=== PATIENT | female | born 1935 | race Caucasian/White ===

== ENCOUNTER 2018-01-26 16:08 | Inpatient (IN) | payer MEDICARE ==
[~2018-01-26] VITALS: Ht 153.7 cm; Wt 71.2 kg
[~2018-01-26 16:08] MED LIST: AMITRIPTYLINE H50 MG PO; AMLODIPINE BESYL5 MG PO; ASPIR-LOW81 MG PO; CAPTOPRIL12.5 MG PO; LEVOTHYROXINE88 MCG PO; LOSARTAN POTAS100 MG PO; MECLIZINE HCL12.5 MG PO; METFORMIN HCL500 MG PO; NORCO 7.5-3251 EACH PO; OXYBUTYNIN CHLOR5 MG PO; PRAVASTATIN SOD20 MG PO; SERTRALINE HCL25 MG PO; SYNTHROID100 MCG PO; ULTRAM50 MG PO; WARFARIN PO; ZOLOFT50 MG PO; tylenol PO
[2018-01-26] MEDS ORDERED: SODIUM CHLORIDE 0.9% 250ML 250 ML IV ONE (16:30)
[2018-01-26] MEDS ORDERED: SODIUM CHLORIDE 0.9% 1000ML 1,000 ML IV STA (16:30)
[2018-01-26 17:14] LABS: BASOPHILS # (AUTO) 0.1 (0.0-0.1); BASOPHILS % 0.4 % (0.0-1.0); EOSINOPHILS # (AUTO) 0.2 (0.0-0.4); EOSINOPHILS % 1.3 % (0.0-6.0); HEMATOCRIT 38.5 % (34.2-44.1); HEMOGLOBIN 12.6 g/dL (12.0-16.0); LYMPHOCYTES # (AUTO) 1.5 (1.0-3.2); LYMPHOCYTES % 12.5 % (18.0-39.1); MEAN CORPUSCULAR HEMOGLOBIN 30.3 pg (28-32); MEAN CORPUSCULAR HGB CONC 32.7 g/dL (31-35); MEAN CORPUSCULAR VOLUME 92.5 fL (81-99); MONOCYTES # (AUTO) 0.8 (0.2-0.8); MONOCYTES % 6.9 % (4.4-11.3); NEUTROPHILS # (AUTO) 9.2 (2.1-6.9); NEUTROPHILS % 78.5 % (38.7-80.0); PLATELET COUNT 176 x10e3/uL (140-360); RED BLOOD COUNT 4.16 x10e6/uL (3.6-5.1); RED CELL DISTRIBUTION WIDTH 14.6 % (11.7-14.4)
[2018-01-26 17:19] LABS: INR 2.05; PROTHROMBIN TIME 24.7 seconds (11.9-14.5)
[2018-01-26 17:21] LABS: PARTIAL THROMBOPLASTIN TIME 64.8 seconds (23.8-35.5)
[2018-01-26 17:28] LABS: ALBUMIN 3.5 g/dL (3.5-5.0); ANION GAP 18.3 mmol/L (8-16); CALCIUM 9.7 mg/dL (8.4-10.2); CREATININE, SERUM 1.38 mg/dL (0.57-1.11); POTASSIUM 4.3 mmol/L (3.5-5.1)
[2018-01-26] MEDS ORDERED: HYDROCODONE/APAP 5MG-325MG TAB PO ONE (17:30)
[2018-01-26 17:55] LABS: BILIRUBIN,URINE 1+ (NEGATIVE); KETONES,URINE TRACE (NEGATIVE); LEUKOCYTE ESTERASE ,URINE NEGATIVE (NEGATIVE); NITRITE,URINE NEGATIVE (NEGATIVE); PROTEIN,URINE DIPSTICK TRACE (NEGATIVE); URINE UROBILINOGEN 0.2 mg/dL (0.2 - 1)
[2018-01-26 18:06] LABS: AMORPHOUS SEDIMENT,URINE MODERATE (FEW); CLARITY,URINE HAZY (CLEAR); COLOR,URINE YELLOW (YELLOW); EPITHELIAL CELLS,URINE FEW /LPF; RBC,URINE 0-5 /HPF (0-5); WBC,URINE (MAN) 0-5 /HPF (0-5)
--- NOTE | 2018-01-26 18:54 | Diagnostic Imaging Report ---
History:Fall, syncope Comparison studies:None Technique: Axial images were obtained from the skull base to the vertex. Coronal and sagittal images reconstructed from the axial data. Intravenous contrast: None Dose modulation, iterative reconstruction, and/or weight based adjustment of the mA/kV was utilized to reduce the radiation dose to as low as reasonably achievable. Findings: Scalp/skull: No abnormalities. Extra-axial spaces: No masses. No fluid collections. Brain sulci: Mildly prominent. Ventricles: Mild compensatory dilatation. No hydrocephalus. Parenchyma: Few small hypodensities in the supratentorial white matter are small vessel ischemic changes. Small chronic head and left subinsular region.. No masses, hemorrhage, acute or chronic cortical vascular insults. Sellar/suprasellar region: No abnormalities. Craniocervical junction: Patent foramen magnum. No Chiari one malformation. Incidental findings: Atherosclerotic calcifications in the carotid siphons . Impression: No acute abnormalities. Chronic findings: 1. Mild generalized volume loss. 2. Mild supratentorial white matter small vessel ischemic changes. Signed by: DR Fredy Hudson M.D. on 01/26/2018 6:50 PM
--- NOTE | 2018-01-26 19:23 | Diagnostic Imaging Report ---
History: Fall, hit head Comparison studies: None Technique: Axial images were obtained through the cervical region. Coronal and sagittal images reconstructed from the axial data. Intravenous contrast: None Findings: Atlantoaxial articulation: Degenerative changes without acute abnormality Alignment: Normal lordosis No scoliosis. Cervicomedullary junction: No abnormalities. Patent foramen magnum. Soft tissues: No gross abnormalities. Vertebrae: No fractures, neoplasm or infection. Degenerative changes: C2-C3: Patent spinal canal and foramina . C3-4: Uncinate facet results in mild bilateral foraminal narrowing with patent canal . C4-5: Uncinate process and facet hypertrophy results in moderate right and mild left foraminal narrowing and patent canal . C5-6: Disc degeneration with decreased intervertebral space. Uncinate process and facet results in moderate bilateral narrowing and patent canal . C6-7: Is degeneration with obliterated intervertebral space. Posterior disc osteophyte complex, bilateral uncinate hypertrophy and facet hypertrophy results in moderate bilateral foraminal narrowing . C7-T1: Patent spinal canal and foramina . IMPRESSION: 1. No acute cervical abnormality. 2. Cannot rule out ligamentous or spinal cord injury. Signed by: DR Fredy Hudson M.D. on 01/26/2018 7:20 PM
[2018-01-26] MEDS ORDERED: ONDANSETRON HCL INJ 2 MG/ML VIAL IV ONE (19:30)
[2018-01-26] MEDS ORDERED: MORPHINE SULFATE 2 MG/ML SYR IV ONE (19:30)
[2018-01-26] MEDS ORDERED: SODIUM CHLORIDE FLUSH 10 ML SYR INJ PRN (19:45)
[2018-01-26 20:30] VITALS: BP 137/51
--- NOTE | 2018-01-26 20:52 | Diagnostic Imaging Report ---
EXAM: CT ABDOMEN/PELVIS WO DATE: 01/26/2018 7:37 PM INDICATION: \S\BLOODY DIARRHEA \S\[id number] \S\2001 \S\Y COMPARISON: None TECHNIQUE: The abdomen and pelvis were scanned using a multidetector helical scanner. Coronal and sagittal reformations were obtained. CT low dose techniques were utilized, as applicable. IV Contrast: 0 ml Isovue 300/370 FINDINGS: Lack of IV contrast decreases sensitivity in evaluating abdominal and pelvic organs. LOWER THORAX: Minimal bibasilar scarring/atelectasis. LIVER/BILIARY: Unremarkable noncontrast appearance. GALLBLADDER: Unremarkable SPLEEN: Unremarkable PANCREAS: Unremarkable noncontrast appearance ADRENALS: No nodules KIDNEYS: No stones. No hydronephrosis. GI TRACT: Diffuse wall thickening and inflammatory changes about the splenic flexure and descending colon. Scattered diverticula. Normal appendix. VESSELS: Moderate atherosclerotic calcifications. PERITONEUM/RETROPERITONEUM: No free air or fluid LYMPH NODES: No lymphadenopathy REPRODUCTIVE ORGANS/BLADDER: Chase noted within the bladder. Otherwise unremarkable noncontrast appearance. SOFT TISSUES: Tiny fat-containing umbilical hernia. BONES: Partially imaged right hip arthroplasty. Multilevel degenerative changes with grade 1 anterolisthesis of L4 over L5. IMPRESSION: Diffuse thickening and inflammatory change from the splenic flexure through the descending colon. This raises suspicion of ischemic colitis given bloody diarrhea and distribution although the differential includes infectious colitis. Signed by: Dr Kristan Glover MD on 01/26/2018 8:49 PM
[2018-01-26] MEDS: MORPHINE SULFATE 2 MG/ML SYR IV PRN (23:55)
[2018-01-27] VITALS (13 sets, daily range): BP systolic 107–147; BP diastolic 51–69
--- NOTE | 2018-01-27 00:30 | Consultation ---
DATE OF CONSULTATION: GI CONSULT NOTE REFERRING PHYSICIAN: Raheem Stovall MD REASON FOR CONSULT: Multiple episodes of painless rectal bleeding. HISTORY OF PRESENT ILLNESS: An 82-year-old very pleasant white female who is a patient of Dr. Casarez. She presented in the emergency room with recurrent episode of painless rectal bleeding. At one point of time, she felt as if she is going to pass out. She had some associated nausea. She is also on warfarin for atrial fibrillation or some kind of a blood clot in carotids. She is not sure why is she on warfarin. In the emergency room, she was noted to be hemodynamically stable. Hemoglobin was noted 12.6. CT of the abdomen showed diffuse thickening in the splenic flexure and descending colon, highly suspicious for ischemic colitis. Patient has not had any episode of rectal bleeding while in the emergency room. No associated fever or chills. Patient recalled that she might have had a colonoscopy within last 5 years. REVIEW OF SYSTEMS: Twelve-point system reviewed, symptomatology is limited to GI system. PAST MEDICAL HISTORY: Hypothyroidism, hypertension, diabetes, hyperlipidemia, anxiety and depression. PAST SURGICAL HISTORY: No abdominal surgeries. 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 SOCIAL HISTORY: No smoking, alcohol, or any illicit drug use. PHYSICAL EXAMINATION VITAL SIGNS: Temperature 96, pulse 20, respirations 154/62, and oxygen saturation 97% on room air. GENERAL: Not in any acute distress. Oral mucosa is moist. Anicteric sclerae. CVS: S1, S2, irregularly irregular. LUNGS: Bilateral grossly clear. ABDOMEN: Soft, protuberant belly, nondistended. Mild lower quadrant tenderness on deep palpation without rebound, rigidity, or guarding. Positive bowel sounds. EXTREMITIES: Warm. No leg edema. LABS: WBC 11.69, hemoglobin 12.6, hematocrit 38.5, MCV 92.5, and platelet count 176,000. Sodium 137, potassium 4.3, chloride 105, bicarb 18, BUN 31, and creatinine 1.38. Liver enzymes normal. PT 24.7, INR 2.05. Urinalysis negative. CT of the abdomen and pelvis without IV contrast showed diffuse thickening and inflammatory changes from splenic flexure through the descending colon. This raises suspicion of ischemic colitis given bloody diarrhea and distribution, although the differential includes infectious colitis. IMPRESSION: Ischemic colitis given no significant drop in hemoglobin. PLAN: Supportive care. IV antibiotics. Clear liquid diet, advance the diet as patient clinically improves. I do not feel the need for any colonoscopy at this time. Will continue the warfarin if it is needed. I thank Dr. Stovall for allowing me to participate in the care of this patient. Job#: [id number] CF
[2018-01-27] MEDS: HYDROCODONE/APAP 5MG-325MG TAB PO PRN ×2 (02:55→14:02)
[2018-01-27 05:03] LABS: BASOPHILS # (AUTO) 0.1 (0.0-0.1); BASOPHILS % 0.6 % (0.0-1.0); EOSINOPHILS # (AUTO) 0.2 (0.0-0.4); EOSINOPHILS % 1.4 % (0.0-6.0); HEMOGLOBIN 10.8 g/dL (12.0-16.0); LYMPHOCYTES # (AUTO) 1.4 (1.0-3.2); LYMPHOCYTES % 12.9 % (18.0-39.1); MEAN CORPUSCULAR HEMOGLOBIN 30.1 pg (28-32); MEAN CORPUSCULAR HGB CONC 31.8 g/dL (31-35); MEAN CORPUSCULAR VOLUME 94.7 fL (81-99); MONOCYTES # (AUTO) 1.1 (0.2-0.8); MONOCYTES % 10.6 % (4.4-11.3); NEUTROPHILS % 74.1 % (38.7-80.0); PLATELET COUNT 133 x10e3/uL (140-360); RED BLOOD COUNT 3.59 x10e6/uL (3.6-5.1); RED CELL DISTRIBUTION WIDTH 14.6 % (11.7-14.4)
[2018-01-27 05:18] LABS: CREATININE, SERUM 0.95 mg/dL (0.57-1.11)
[2018-01-27] MEDS: PANTOPRAZOLE 40 MG 10ML VIAL IV SCH (08:17)
[2018-01-27] MEDS: ACETAMINOPHEN 325 MG TAB PO PRN ×2 (08:20→16:06)
[2018-01-27] MEDS: MORPHINE SULFATE 2 MG/ML SYR IV PRN ×3 (09:44→20:30)
[2018-01-27] MEDS: MECLIZINE HCL 12.5 MG TAB PO SCH (10:00)
[2018-01-27 10:14] LABS: BASOPHILS % 0.4 % (0.0-1.0); EOSINOPHILS # (AUTO) 0.1 (0.0-0.4); EOSINOPHILS % 0.9 % (0.0-6.0); HEMATOCRIT 32.8 % (34.2-44.1); HEMOGLOBIN 10.7 g/dL (12.0-16.0); LYMPHOCYTES # (AUTO) 0.9 (1.0-3.2); LYMPHOCYTES % 9.7 % (18.0-39.1); MEAN CORPUSCULAR HEMOGLOBIN 30.5 pg (28-32); MEAN CORPUSCULAR HGB CONC 32.6 g/dL (31-35); MEAN CORPUSCULAR VOLUME 93.4 fL (81-99); MONOCYTES # (AUTO) 0.8 (0.2-0.8); MONOCYTES % 8.6 % (4.4-11.3); NEUTROPHILS # (AUTO) 7.7 (2.1-6.9); NEUTROPHILS % 79.9 % (38.7-80.0); PLATELET COUNT 149 x10e3/uL (140-360); RED BLOOD COUNT 3.51 x10e6/uL (3.6-5.1); RED CELL DISTRIBUTION WIDTH 14.6 % (11.7-14.4)
[2018-01-27] MEDS: OXYBUTYNIN CHLORIDE 5 MG TAB PO SCH ×2 (10:18→17:20)
[2018-01-27] MEDS: SODIUM CHLORIDE 0.9% 1000ML 1,000 ML IV SCH (10:18)
[2018-01-27] MEDS: LEVOTHYROXINE SODIUM 75 MCG TAB PO SCH (10:18)
[2018-01-27 10:27] LABS: INR 1.8; PROTHROMBIN TIME 22.3 seconds (11.9-14.5)
--- NOTE | 2018-01-27 10:29 | History and Physical ---
CHIEF COMPLAINT: Syncopal episode and bloody diarrhea. HPI: This is an 82-year-old female with a past medical history of hypertension, hypothyroidism, and underlying chronic dizziness, as well as urinary incontinence, who comes in to the ED after having a couple of episodes of syncope that occurred at home. Patient reports that she was getting up having the urge to use the bathroom. When she got up, she landed on the ground, but did not lose any consciousness. There is no reports of any chest pain, palpitation, lightheadedness, or dizziness prior to this occurring. Patient then got up and went to the restroom, and reports having a significant amount of bloody diarrhea. She completed her diarrhea and went back to the living room. Then she got up again to go use the restroom, and then fell over again. There is no reports of loss of consciousness on any episodes. There is no reports of any slurred speech, facial droop, any stroke-like symptoms, or any seizure like activity. No chest pain. No palpitations when this occurred. The patient still reports having significant amount of bloody diarrhea after several bouts, and came here to the ED for further evaluation. On eval, the patient looks significantly dehydrated likely secondary to the above diarrhea. Denies any chest pain, palpitation or any other complaints at this time. REVIEW OF SYSTEMS: Pertinent positive: She had bloody diarrhea and syncopal episode and abdominal pain. Pertinent negative: Denies any chest pain, palpitation, nausea, vomiting, diarrhea, dysuria, hematuria, frequency, urgency, lightheadedness, dizziness, shortness of breath, cough, congestion or any other complaints. The rest of the 14-point review of systems have been reviewed with the patient and are negative. ALLERGIES: NO KNOWN DRUG ALLERGIES. MEDICATIONS 1. Aspirin 81 mg daily. 2. She takes Winfield 7.5 mg 1 tab every 6 hours as needed for pain. 3. Metformin 500 mg b.i.d. 4. Tramadol. 5. Amitriptyline 50 mg daily. 6. Amlodipine 10 mg p.o. b.i.d. 7. Levothyroxine 150 mcg daily. 8. Losartan 100 mg b.i.d. 9. Meclizine 25 mg daily. 10. Oxybutynin 5 mg p.o. b.i.d. 11. Pravastatin 20 mg daily. 12. Sertraline 100 mg b.i.d. PAST MEDICAL HISTORY: Hypothyroidism, hypertension, chronic dizziness, chronic pain. SURGICAL HISTORY: Reports none. FAMILY HISTORY: Hypertension and diabetes. SOCIAL HISTORY: No drugs. No alcohol. Does not smoke. Good social support. PHYSICAL EXAMINATION VITAL SIGNS: Temperature is 101.2, pulse is 96, respiratory rate is 18, blood pressure 147/67, pulse ox 99% on 2 L nasal cannula. GENERAL: Not in acute distress. Alert and oriented times 3. Cooperative on examination. HEENT: Head is normocephalic and atraumatic. Eyes: Pupils equal, round and reactive to light bilaterally. Extraocular movements intact bilaterally. NECK: Supple. Good range of motion. Throat with no evidence of any erythema or exudates in the posterior pharynx. Has poor dentition. PULMONARY: Clear to auscultation bilaterally. No wheezing. No rales. No rhonchi. No crackles appreciated. CARDIOVASCULAR: Positive S1 and S2. No murmurs, rubs or gallops appreciated. ABDOMEN: Soft, nondistended and nontender to palpation. Bowel sounds present. The patient had tenderness to palpation in the left lower quadrant area. No rebound. No guarding. MUSCULOSKELETAL: Strength is 5/5 throughout. No evidence of any muscle deficit on examination. No weakness appreciated. NEUROLOGICAL: Cranial nerves II-XII are grossly intact. No evidence of any neurological deficits on exam. SKIN: Intact. Warm to touch. Good cap refill. PSYCHIATRIC: Normal affect and mood. EXTREMITIES: No edema. Good range of motion throughout. LAB FINDINGS: Show white count is 10.7, hemoglobin 10.8, hematocrit 34, and platelets of 133, 000. On admission, her hemoglobin was 12.6. Coagulation: PT 24.7, INR is 2.05 and PTT is 64.8. Chemistry: Sodium 137, potassium is 4, chloride 108, bicarb 18, anion gap of 15, BUN is 23, creatinine 0.95, glucose is 123. Calcium 9.7. LFTs were normal. Albumin 3.5. Urinalysis negative. MICROBIOLOGY: Urine culture pending. IMAGING STUDIES: CT of cervical spine was found to be negative for any acute abnormality. CT of brain was found to be negative. CT of abdomen and pelvis was consistent with diffuse thickening and inflammatory changes from the splenic flexure through the descending colon. This is concerning for ischemic colitis. ASSESSMENT AND PLAN 1. Abdominal pain concerning for underlying ischemic colitis versus infectious: Seems like the patient has more ischemic colitis with the bloody diarrhea. Will get gastroenterology, as well as general surgery consultation. She is on a clear liquid diet. Continue intravenous fluids and pain control. Also, get coags and a.m. labs. 2. Acute kidney injury secondary to dehydration: Creatinine is improving. Continue with intravenous fluids. 3. Syncope likely secondary to underlying dehydration: Will monitor very closely. Will get physical therapy and occupational therapy eval. Her computerized tomography of the brain was found to be negative, as well as computerized tomography of cervical spine. She will be on cardiac telemetry and monitor closely. We are going trend troponins as well. She will work with physical therapy as well. We are going to get a shoulder x-ray bilaterally, as well as a hip x-ray to rule out any type of fracture. 4. Chronic pain syndrome: She is currently on Winfield and pain control. 5. Hypertension, stable: Continue same home medications. 6. Fever likely secondary to get ischemic colitis versus infectious: We are going to get blood cultures, urine cultures and put her on intravenous Cipro and Flagyl in the event she has an infectious colitis. 7. Prophylaxis: We are going to put her on sequential compression devices for now. No anticoagulation due to bloody diarrhea. 8. Fluid, electrolytes and nutrients: Intravenous fluids and clear liquid diet. 9. Disposition: Inpatient. General surgery and gastroenterology will be consulted to further manage and care. Job#: [id number] GALLO
[2018-01-27 10:32] LABS: ANION GAP 13.8 mmol/L (8-16); CALCIUM 8.4 mg/dL (8.4-10.2); CREATININE, SERUM 0.99 mg/dL (0.57-1.11); POTASSIUM 3.8 mmol/L (3.5-5.1)
[2018-01-27] MEDS: METRONIDAZOLE 500MG/NS 100ML 100 ML IV SCH ×2 (11:30→18:05)
--- NOTE | 2018-01-27 13:23 | Diagnostic Imaging Report ---
Exam: Right and left hip 2 views each with AP pelvis History: Pain Comparison: None. Findings: No displaced fracture. Right total hip arthroplasty. Hardware intact. Minimal degenerative arthrosis of the left hip. Bone demineralization. Impression: No acute osseous abnormality Intact right hip total arthroplasty Signed by: Dr. Rom Glass M.D. on 01/27/2018 1:20 PM
--- NOTE | 2018-01-27 13:25 | Diagnostic Imaging Report ---
Exam: Right and left shoulder 2 views each History: Shoulder pain, fall Comparison: None. Findings: No fracture or malalignment. Severe glenohumeral degenerative arthrosis with [id number] appearance and hypertrophic osteophyte formation. No abnormal soft tissue calcification or soft tissue defect. Impression: No acute osseous abnormality Severe glenohumeral degenerative arthrosis with [id number] appearance and hypertrophic osteophyte formation Signed by: Dr. Rom Glass M.D. on 01/27/2018 1:21 PM
[2018-01-27] MEDS: CIPROFLOXACIN 400 MG/D5W 200ML 200 ML IV SCH ×2 (14:15→21:28)
[2018-01-27] MEDS ORDERED: SERTRALINE HCL 50 MG TAB PO SCH (17:00)
[2018-01-27 17:09] LABS: BASOPHILS % 0.4 % (0.0-1.0); EOSINOPHILS # (AUTO) 0.1 (0.0-0.4); EOSINOPHILS % 1.2 % (0.0-6.0); HEMATOCRIT 31.7 % (34.2-44.1); HEMOGLOBIN 10.2 g/dL (12.0-16.0); LYMPHOCYTES # (AUTO) 0.9 (1.0-3.2); LYMPHOCYTES % 9.6 % (18.0-39.1); MEAN CORPUSCULAR HEMOGLOBIN 30.4 pg (28-32); MEAN CORPUSCULAR HGB CONC 32.2 g/dL (31-35); MEAN CORPUSCULAR VOLUME 94.3 fL (81-99); MONOCYTES # (AUTO) 0.9 (0.2-0.8); MONOCYTES % 9.6 % (4.4-11.3); NEUTROPHILS # (AUTO) 7.1 (2.1-6.9); NEUTROPHILS % 78.6 % (38.7-80.0); PLATELET COUNT 138 x10e3/uL (140-360); RED BLOOD COUNT 3.36 x10e6/uL (3.6-5.1); RED CELL DISTRIBUTION WIDTH 14.6 % (11.7-14.4)
[2018-01-27] MEDS: AMLODIPINE BESYLATE 5 MG TAB PO SCH (17:20)
[2018-01-27] MEDS: LOSARTAN POTASSIUM 100 MG TAB PO SCH (17:20)
[2018-01-27] MEDS: SERTRALINE HCL 100 MG TAB PO SCH (17:20)
[2018-01-27] MEDS: PRAVASTATIN 20 MG TAB PO SCH (20:30)
--- NOTE | 2018-01-27 22:02 | Progress Note ---
DATE: January 27, 2018 SUBJECTIVE: Patient has not had any bowel movement since yesterday. Reports no abdominal pain. Complaining of generalized muscle ache. REVIEW OF SYSTEMS: GENERAL: No fever or chills. RESPIRATORY: No cough or expectoration. CVS: No chest pain, palpitation. MEDICATIONS: Reviewed as per JUN. She is on intravenous ciprofloxacin as well as metronidazole along with other medications. PHYSICAL EXAMINATION: VITAL SIGNS: Temperature 98.9, pulse 82, respirations 18 to 20, blood pressure 132/65, oxygen saturation 94% on 2 liters of nasal cannula. GENERAL: Not in any acute distress. HEENT: Oral mucosa is moist. ABDOMEN: Soft, nondistended, nontender. No palpable mass or hernia. Positive bowel sounds. LABS: WBC 9.08, hemoglobin 10.2, hematocrit 31.7, and platelet count 138,000. PT 22.3, INR 1.8. Sodium 135, potassium 3.8, chloride 106, bicarb 19, BUN 23, creatinine 0.99, glucose 189. IMPRESSION: Ischemic colitis, likely which has improved. No more rectal bleeding. Hemoglobin remains stable. PLAN: Advance to full liquid. Monitor next 12 hours for any GI bleeding. If no further bleeding and hemoglobin remains stable, then the warfarin can be restarted. Job#: [id number]
[2018-01-28] VITALS (10 sets, daily range): BP systolic 115–152; BP diastolic 59–81
[2018-01-28] MEDS: HYDROCODONE/APAP 5MG-325MG TAB PO PRN ×2 (00:28→19:12)
[2018-01-28 00:30] LABS: HEMATOCRIT 31.7 % (34.2-44.1); HEMOGLOBIN 10.3 g/dL (12.0-16.0)
--- NOTE | 2018-01-28 00:46 | Consultation ---
DATE OF CONSULTATION: January 27, 2018 CHIEF COMPLAINT: Diarrhea and hematochezia. HISTORY OF PRESENT ILLNESS: This patient is an 82-year-old female admitted after 2 episodes of fainting and falling at home, complaining of pain in the abdomen. The patient states she had some diarrhea and cramping abdominal pain prior to the fainting episode. Upon admission, she also had blood per rectum. PAST MEDICAL HISTORY: Significant for hypertension, diabetes, hyperlipidemia, and hypothyroidism. SURGICAL HISTORY: Unremarkable. ALLERGIES: SHE HAS NO DRUG ALLERGIES. SOCIAL HABITS: The patient denies smoking or alcohol abuse. REVIEW OF SYSTEMS: No current chest pain or shortness of breath. PHYSICAL EXAMINATION VITAL SIGNS: Stable. T-max is 101. GENERAL: Patient is awake, responsive, in no apparent distress. HEENT: Sclerae anicteric. NECK: Supple. LUNGS: Clear. HEART: Regular rate and rhythm. ABDOMEN: Mildly distended with some guarding in the mid abdomen without rebound or tenderness. EXTREMITIES: Without cyanosis or edema. LABS: White cell count is 9, hemoglobin of 10, and platelet count is 138,000. Creatinine is 0.9. CT of the abdomen shows inflammation of the left colon suggestive of ischemic versus infectious colitis. X-ray of shoulder and hip shows no acute fracture. ASSESSMENT: Crampy abdominal pain with episode of hematochezia which has resolved and patient tolerating clear liquids. Computerized tomography scan suggests ischemic colitis. PLAN: The patient has been currently well hydrated. She tolerated liquid diet. We will advance diet as tolerated and manage patient conservatively. Job#: [id number]
[2018-01-28] MEDS: METRONIDAZOLE 500MG/NS 100ML 100 ML IV SCH ×3 (01:18→17:22)
[2018-01-28 04:35] LABS: HEMATOCRIT 33.1 % (34.2-44.1); HEMOGLOBIN 10.4 g/dL (12.0-16.0)
[2018-01-28] MEDS: LEVOTHYROXINE SODIUM 75 MCG TAB PO SCH (05:29)
[2018-01-28] MEDS ORDERED: LEVOTHYROXINE SODIUM 100 MCG TAB PO SCH (06:00)
[2018-01-28 06:39] LABS: BASOPHILS % 0.4 % (0.0-1.0); EOSINOPHILS # (AUTO) 0.1 (0.0-0.4); EOSINOPHILS % 1.1 % (0.0-6.0); LYMPHOCYTES # (AUTO) 1.2 (1.0-3.2); LYMPHOCYTES % 12.8 % (18.0-39.1); MEAN CORPUSCULAR HEMOGLOBIN 30.7 pg (28-32); MEAN CORPUSCULAR HGB CONC 32.3 g/dL (31-35); MONOCYTES # (AUTO) 0.8 (0.2-0.8); MONOCYTES % 9.2 % (4.4-11.3); NEUTROPHILS # (AUTO) 6.9 (2.1-6.9); NEUTROPHILS % 75.8 % (38.7-80.0); PLATELET COUNT 148 x10e3/uL (140-360); RED BLOOD COUNT 3.42 x10e6/uL (3.6-5.1); RED CELL DISTRIBUTION WIDTH 14.6 % (11.7-14.4)
[2018-01-28 06:46] LABS: ANION GAP 15.9 mmol/L (8-16); CALCIUM 9.5 mg/dL (8.4-10.2); CREATININE, SERUM 1.04 mg/dL (0.57-1.11); POTASSIUM 4.9 mmol/L (3.5-5.1)
[2018-01-28] MEDS: SODIUM CHLORIDE 0.9% 1000ML 1,000 ML IV SCH ×2 (07:10→16:55)
[2018-01-28] MEDS: PANTOPRAZOLE 40 MG 10ML VIAL IV SCH (08:55)
[2018-01-28] MEDS: SERTRALINE HCL 100 MG TAB PO SCH ×2 (08:55→17:00)
[2018-01-28] MEDS: AMLODIPINE BESYLATE 5 MG TAB PO SCH ×2 (08:55→17:00)
[2018-01-28] MEDS: MECLIZINE HCL 12.5 MG TAB PO SCH (08:55)
[2018-01-28] MEDS: AMITRIPTYLINE HCL 25 MG TAB PO SCH (08:55)
[2018-01-28] MEDS: OXYBUTYNIN CHLORIDE 5 MG TAB PO SCH ×2 (08:55→17:00)
[2018-01-28] MEDS: LOSARTAN POTASSIUM 100 MG TAB PO SCH ×2 (08:55→17:00)
[2018-01-28] MEDS ORDERED: NON-FORMULARY MEDICATION (Amitriptyline Hcl 50 MG) PO SCH (09:00)
[2018-01-28] MEDS: CIPROFLOXACIN 400 MG/D5W 200ML 200 ML IV SCH (09:15)
[2018-01-28] MEDS: ACETAMINOPHEN 325 MG TAB PO PRN ×3 (10:00→18:20)
[2018-01-28] MEDS: MEROPENEM 500 MG VIAL IV SCH ×3 (10:36→22:18)
--- NOTE | 2018-01-28 11:01 | Progress Note ---
DATE: January 28, 2018 SUBJECTIVE: Patient is doing very well today. She still has some shoulder pain. X-ray is consistent with osteoarthritis. I reviewed the note with general surgery and GI at this time. They just want conservative treatment. She does have a history of coagulopathy in which I have discussed this with the primary care physician last night, Dr. Casarez, in which she follows up with Dr. 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 That is the reason why she is currently on warfarin. OBJECTIVE VITALS: Temperature is 102.2, T-max was 102.2. She is not complaining of any complaints at this time. Her pulse is 96, respiratory rate 20, blood pressure 142/77, pulse ox 93%. She is on 3 L nasal cannula. GENERAL: Not in acute distress. Alert and oriented times 3. Cooperative on examination. HEENT: Head is normocephalic and atraumatic. Eyes: Pupils equal, round and reactive to light bilaterally. Extraocular movements intact bilaterally. NECK: Supple. Good range of motion. Throat with no evidence of any erythema or exudates in the posterior pharynx. Has poor dentition. PULMONARY: Clear to auscultation bilaterally. No wheezing. No rales. No rhonchi. No crackles appreciated. CARDIOVASCULAR: Positive S1 and S2. No murmurs, rubs or gallops appreciated. ABDOMEN: Soft, nondistended and nontender to palpation. Bowel sounds present. MUSCULOSKELETAL: Strength is 5/5 throughout. No evidence of any muscle deficit on examination. No weakness appreciated. NEUROLOGICAL: Cranial nerves II-XII are grossly intact. No evidence of any neurological deficits on exam. SKIN: Intact. Warm to touch. Good cap refill. PSYCHIATRIC: Normal affect and mood. EXTREMITIES: No edema. Good range of motion throughout. LAB FINDINGS: Show white count is 9, hemoglobin 10.4, hematocrit 33, and platelets of 148,000. Coagulation: PT 22.3, INR 1.8. Chemistry: Sodium 135, potassium 4.9, chloride 105, bicarb 19, anion gap is 15, BUN 22, creatinine 1.04, glucose 152. Calcium is 9.5. Urinalysis was negative. MICROBIOLOGY: Urine culture negative. Blood cultures were negative times 2. IMAGING STUDIES: Chest x-ray ordered today and is pending. Her hip x-ray was negative. Right shoulder x-ray was consistent with osteoarthritis with severe glenohumeral degenerative arthrosis, [id number] hypertrophic osteophyte formation. ASSESSMENT AND PLAN 1. Abdominal pain secondary to ischemic colitis: Per general surgery and gastroenterology's notes, they recommend conservative treatment. The patient has no more rectal bleeding on exam now. She is on a clear liquid diet. We are going to advance her diet to regular per new vehicle sales consultant's notes. Her INR is 1.8. Will continue to monitor that as well. 2. Acute kidney injury secondary to dehydration, resolved with intravenous fluid hydration: Continue with low-dose intravenous fluids. 3. Syncope: Likely secondary to dehydration and rectal bleeding. She refuses to work with physical therapy and occupational therapy. Her computerized tomography of brain was found to be negative. Computerized tomography of cervical spine negative as well. Her cardiac enzymes were negative times 3. Her x-ray of her hip is negative. Right shoulder x-ray shows osteoarthritis, but no evidence of any fracture. 4. Chronic pain syndrome: She is currently on pain control. Will continue to monitor. 5. Hypertension: Currently stable. Continue the same plan of care. 6. Fever: Unknown etiology. I am not sure if this is from ischemic colitis versus infectious. I will discontinue the Cipro and add intravenous Merrem. Her blood and urine cultures are negative. Chest x-ray has been taken, and infectious disease has been consulted. 7. History of coagulopathy: The patient is on warfarin due to some history of some coagulopathy in which she was following up with Dr. Newton, hematology. I discussed this with Dr. Casarez, her primary care physician. At this time, I will consult with Dr. Newton about possibly resuming her warfarin medication. Will await hematology recommendations. 8. Prophylaxis: Sequential compression devices. 9. Fluid, electrolytes, nutrients: Low-dose intravenous fluids. She is on clear liquids. Advance diet as tolerated. 10. Disposition: Inpatient. General surgery, gastroenterology and hematology consulted. 11. Discharge planning: Plan to discharge home in the next 1-2 days once the patient is tolerating diet well, and once I get hematology recommendations and there is no more evidence of any rectal bleeding. Job#: [id number] SD
--- NOTE | 2018-01-28 11:27 | Diagnostic Imaging Report ---
PROCEDURE: A single AP view of the chest. COMPARISON: Patients [facility], DX, SHOULDER COMPLETE BILATERAL, 01/27/2018, 12:23. Patients [facility], DX, CHEST 2 VIEWS, 12/07/2016, 12:21. INDICATIONS: SHORT OF BREATH FINDINGS: Lines/tubes: None. Lungs: Opacity which may be pleural-based involving the right lateral upper lobe region. Increase in the pulmonary vascularity. There is a right basilar opacity likely atelectasis. Pleura: There is no pleural effusion or pneumothorax. Heart and mediastinum: The heart and the mediastinum are unremarkable. Calcification within the aorta. Bones: Degenerative changes of both shoulders. IMPRESSION: 1. Right upper pulmonary opacity could represent pleural-based mass or hematoma. 2. CT scan of the chest with IV contrast is recommended. Brendan Brian D.O. Dictated by: Brendan Brian D.O. on 01/28/2018 at 11:36 Electronically approved by: Brendan Brian D.O. on 01/28/2018 at 11:36
[2018-01-28] MEDS ORDERED: MEROPENEM 500MG 500 MG in SODIUM CHLORIDE 0.9% 50ML 50 ML IV SCH (12:00)
--- NOTE | 2018-01-28 19:40 | Progress Note ---
DATE: January 28, 2018 SUBJECTIVE: Patient has not had any bowel movement. She is spiking fever. Tolerating full liquid diet. REVIEW OF SYSTEMS: GENERAL: Fever with some chills. CVS: No chest pain or palpitation. RESPIRATORY: No cough or expectoration. MEDICATIONS: Reviewed as per MAR. She is on intravenous meropenem as well as metronidazole along with other medications. PHYSICAL EXAMINATION GENERAL: Not in any acute distress. HEENT: Oral mucosa moist. Anicteric sclerae. ABDOMEN: Soft, nondistended and nontender. No palpable mass or hernia. Positive bowel sounds. LABS: Hemoglobin is10.4 which is stable. Normal white count. Platelet count 148,000. Electrolytes normal. Blood culture with no growth in 24 hours. Urine culture no growth. IMAGING: Chest x-ray: Right upper pulmonary opacity could represent pleural based mass or hematoma. CT scan of the chest with IV contrast is recommended. IMPRESSION: 1. Acute ischemic colitis has resolved. 2. Fever of unknown cause. 3. Right upper pulmonary opacity on the chest x-ray concerning for liver based mass versus hematoma. This needs further evaluation with a contrast CT. PLAN: From GI standpoint, warfarin can be resumed. Advance the diet as tolerated. Watch for bowel movement. Job#: [id number]
[2018-01-28 19:52] LABS: HEMATOCRIT 31.6 % (34.2-44.1); HEMOGLOBIN 10.2 g/dL (12.0-16.0)
--- NOTE | 2018-01-28 20:00 | Consultation ---
DATE OF CONSULTATION: REASON FOR CONSULTATION: Concern about sepsis. HISTORY: Ms. Riddle is an 82-year-old white female who has history of hypertension, hypothyroidism, chronic dizziness, urinary incontinence, comes in the emergency room with syncopal episode at home. The patient was trying to go to restroom, apparently she get up but she fell on the ground. There was no loss of consciousness. She was brought to the emergency room where she was admitted. The patient who is not feeling well in general, has no specific complaints. She is just not feeling well. Currently, there is no chest pain, but she complains of some nausea. She has some diarrhea, which she has for on and off for a while she is saying. The patient tells me that she had history of bloody diarrhea, history of syncopal spell, abdominal pain. Patient is being admitted. Infectious disease was consulted. ALLERGIES: NKA. MEDICATIONS: She is on aspirin, [place], metformin, tramadol, amitriptyline, amlodipine, levothyroxine, losartan, pravastatin. PAST MEDICAL HISTORY: Hypothyroidism, hypertension, chronic dizziness. PAST SURGICAL HISTORY: Denies. SOCIAL HISTORY: There is no smoking, drug abuse, alcohol abuse. FAMILY HISTORY: Diabetes. REVIEW OF SYSTEMS: At the present time, besides all mentioned above, the patient is complaining that she has painless rectal bleed episode. She is complaining of some nausea, still complaining of dizziness, just not feeling well and aching all over. In addition to the above, everything else was nothing new. Patient who was admitted, she was seen by gastroenterology, she was seen by surgery. CAT scan was obtained. LABORATORY DATA: Reviewed. Her white count on admission 9.09, hemoglobin 10, hematocrit 33. Sodium 135, potassium 4.5, creatinine 0.99. MEDICATIONS LIST: She is on metronidazole, Zoloft, Cozaar, Norvasc. She was on meropenem. PHYSICAL EXAMINATION: GENERAL: She is currently alert, oriented, does not seem to be in acute distress. VITAL SIGNS: Temperature 101.1, heart rate of 85, respiration of 17. HEENT: She is normocephalic, does not appear icteric. NECK: Supple. No JVD, no lymphadenopathy, no thyromegaly. CHEST: Clear bilaterally. HEART: S1 and S2. No murmur. ABDOMEN: Soft. Bowel sounds present. No tenderness. EXTREMITIES: No edema. CAT scan of abdomen and pelvis showed there are inflammatory changes. IMPRESSION: Fever and abdominal pain and bloody diarrhea. Concern about ischemic colitis. Agree with Flagyl, will change meropenem to cefepime. Got rest. Patient has already been seen by gastroenterology. Await culture and sensitivity. Further recommendations to follow. Job#: [id number]
[2018-01-28] MEDS ORDERED: PHYTONADIONE 10 MG/ML AMP PO ONE (21:30)
[2018-01-28] MEDS: PRAVASTATIN 20 MG TAB PO SCH (22:18)
[2018-01-29] VITALS (10 sets, daily range): BP systolic 112–150; BP diastolic 66–175
[2018-01-29] MEDS: METRONIDAZOLE 500MG/NS 100ML 100 ML IV SCH ×3 (02:28→17:21)
[2018-01-29] MEDS: HYDROCODONE/APAP 5MG-325MG TAB PO PRN ×3 (02:29→22:01)
[2018-01-29] MEDS: ACETAMINOPHEN 325 MG TAB PO PRN ×3 (02:29→22:10)
[2018-01-29 05:02] LABS: BASOPHILS % 0.4 % (0.0-1.0); EOSINOPHILS # (AUTO) 0.2 (0.0-0.4); EOSINOPHILS % 2.1 % (0.0-6.0); HEMATOCRIT 31.1 % (34.2-44.1); HEMOGLOBIN 9.9 g/dL (12.0-16.0); LYMPHOCYTES # (AUTO) 0.9 (1.0-3.2); LYMPHOCYTES % 13.2 % (18.0-39.1); MEAN CORPUSCULAR HEMOGLOBIN 29.7 pg (28-32); MEAN CORPUSCULAR HGB CONC 31.8 g/dL (31-35); MEAN CORPUSCULAR VOLUME 93.4 fL (81-99); MONOCYTES # (AUTO) 0.8 (0.2-0.8); NEUTROPHILS % 71.6 % (38.7-80.0); PLATELET COUNT 144 x10e3/uL (140-360); RED BLOOD COUNT 3.33 x10e6/uL (3.6-5.1); RED CELL DISTRIBUTION WIDTH 14.6 % (11.7-14.4)
[2018-01-29] MEDS: MEROPENEM 500 MG VIAL IV SCH ×4 (05:12→20:32)
[2018-01-29] MEDS: LEVOTHYROXINE SODIUM 75 MCG TAB PO SCH (05:12)
[2018-01-29 05:18] LABS: INR 1.24; PROTHROMBIN TIME 16.7 seconds (11.9-14.5)
[2018-01-29 05:28] LABS: ALANINE AMINOTRANSFERASE 13 IU/L (0-55); ALBUMIN 2.7 g/dL (3.5-5.0); ALBUMIN/GLOBULIN RATIO 0.9 (0.8-2.0); ALKALINE PHOSPHATASE 86 IU/L (40-150); ANION GAP 12.9 mmol/L (8-16); BLOOD UREA NITROGEN 14 mg/dL (7-26); BUN/CREATININE RATIO 17 (6-25); CARBON DIOXIDE 19 mmol/L (22-29); CHLORIDE 109 mmol/L (98-107); CREATININE, SERUM 0.81 mg/dL (0.57-1.11); EST GLOMERULAR FILTRATION RATE > 60 ML/MIN (60-); GLUCOSE 180 mg/dL (74-118); POTASSIUM 3.9 mmol/L (3.5-5.1); SODIUM 137 mmol/L (136-145)
[2018-01-29] MEDS: MECLIZINE HCL 12.5 MG TAB PO SCH (08:46)
[2018-01-29] MEDS: SODIUM CHLORIDE 0.9% 1000ML 1,000 ML IV SCH ×2 (08:46→15:05)
[2018-01-29] MEDS: LOSARTAN POTASSIUM 100 MG TAB PO SCH ×2 (08:46→17:21)
[2018-01-29] MEDS: PANTOPRAZOLE 40 MG 10ML VIAL IV SCH (08:46)
[2018-01-29] MEDS: SERTRALINE HCL 100 MG TAB PO SCH ×2 (08:47→17:21)
[2018-01-29] MEDS: AMLODIPINE BESYLATE 5 MG TAB PO SCH ×2 (08:47→17:21)
[2018-01-29] MEDS: AMITRIPTYLINE HCL 25 MG TAB PO SCH (08:47)
[2018-01-29] MEDS: OXYBUTYNIN CHLORIDE 5 MG TAB PO SCH ×2 (08:47→17:21)
--- NOTE | 2018-01-29 11:56 | Progress Note ---
DATE: January 29, 2018 SUBJECTIVE: Patient is currently doing well but she continues to refuse to work with physical therapy. I discussed the case with hematology, Dr. Newton. He is not sure why the patient is on warfarin. Apparently, the family thinks that they have an issue of coagulopathy. They are not sure who the floor installation mechanic was but Dr. Newton has never seen her before in the past. I advised her just to continue with her warfarin until she finds the appropriate floor installation mechanic to determine the plan of care. This is exactly what the family wants. Otherwise, there is no evidence of any blood in her stool. Her diet will be advanced. OBJECTIVE VITAL SIGNS: Temperature is 98.9, she did have a T-max of 102.1 yesterday. Blood pressure is 179/71, pulse is 90, respiratory rate is 18, pulse ox is 90% on 4 L nasal cannula. GENERAL: Not in acute distress. Alert and oriented times 3. Cooperative on examination. HEENT: Head is normocephalic and atraumatic. Eyes: Pupils equal, round and reactive to light bilaterally. Extraocular movements intact bilaterally. NECK: Supple. Good range of motion. Throat, no evidence of any erythema or exudates in the posterior pharynx. Has poor dentition. PULMONARY: Clear to auscultation bilaterally. No wheezing. No rales. No rhonchi. No crackles appreciated. CARDIOVASCULAR: Positive S1 and S2. No murmurs, rubs or gallops appreciated. ABDOMEN: Soft, nondistended and nontender to palpation. Bowel sounds present. MUSCULOSKELETAL: Strength is 5/5 throughout. No evidence of any muscle deficit on examination. No weakness appreciated. NEUROLOGICAL: Cranial nerves II-XII are grossly intact. No evidence of any neurological deficits on exam. SKIN: Intact. Warm to touch. Good cap refill. PSYCHIATRIC: Normal affect and mood. EXTREMITIES: No edema. Good range of motion throughout. IMAGING STUDIES: A chest x-ray yesterday showed some right upper pulmonary opacity, could represent a pleural base mass or hematoma. CT chest with IV contrast has been ordered. ASSESSMENT AND PLAN 1. Abdominal pain secondary to ischemic colitis-GI and general surgery were following. At this time, there is going to be conservative treatment. She is on full liquid diet which we are going to try to advance to regular. Per their notes, it is okay to start warfarin. I also discussed this with hematology. He recommends holding warfarin but the family wants to continue and so they will follow up as an outpatient with . 2. Acute kidney injury secondary to dehydration-resolved. 3. Syncope, likely secondary to dehydration and rectal bleeding-she refuses to work with physical therapy and occupational therapy. 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 Cardiac enzymes were negative times 3. 4. Chronic pain syndrome: She is currently on pain control. 5. Hypertension, currently stable. Continue same home medications. 6. Fever-unknown etiology, could be some ischemic colitis but ID is being consulted. She is currently now on Flagyl and cefepime per ID recommendations. She still had a temp yesterday of 103, which we will await further recommendations. All the cultures were negative to date at this time. 7. History of coagulopathy ?-Hematology was consulted but he has never seen this patient before, Dr. Newton. Patient has no history of atrial fibrillation. We are unsure if she has a history of coagulopathy but I prefer to discuss if hematology recommends holding anticoagulation. Family is wanting to continue and will follow up with their PCP. At this time, we are going to resume the warfarin and monitor very closely her hemoglobin. 8. Pulmonary mass versus infection-I discussed this with hematology, recommends getting a CT chest with IV contrast which has been ordered for today. We will continue to follow. 9. Prophylaxis, sequential compression devices. 10. Fluid, electrolytes, [id number] intravenous fluids. She is currently on full liquid diet. Discussed with nurses. Discussed with the consultants for advancing to regular. 11. Disposition-inpatient. General surgery, GI, and hematology will be consulted. 12. Discharge planning: She continues to have fever at 102.1. From general surgery and GI standpoint, she seems to be cleared. Hematology, she seems to be cleared, but for fever, ID is continuing to follow. At this time, she is on IV antibiotics. Job#: [id number] RONIT
--- NOTE | 2018-01-29 12:16 | Diagnostic Imaging Report ---
EXAMINATION: CT scan of the chest with contrast. TECHNIQUE: Helical CT images of the chest were performed from the lung apices to the level of the adrenal glands after the intravenous administration of 100 cc of Isovue 370. Coronal and sagittal reformatted images were obtained.Dose modulation, iterative reconstruction, and/or weight based adjustment of the mA/kV was utilized to reduce the radiation dose to as low as reasonably achievable. COMPARISON: None. CLINICAL HISTORY:Cough, evaluate for lung mass. DISCUSSION: LINES/TUBES: None. LUNGS AND AIRWAYS: Right upper lobe and lower lobe peripheral consolidation. Right lower lobe and left lower lobe dependent atelectasis. Calcified granuloma left lower lobe. PLEURA: Right greater than left small effusions. HEART AND MEDIASTINUM: The thyroid gland is normal. Heart size is normal. Main pulmonary artery measures 2.8 cm. No visualized filling defect within the pulmonary arteries LYMPH NODES: There is no mediastinal, hilar or axillary lymphadenopathy. ABDOMEN: Limited contrast-enhanced views of the upper abdomen show no abnormality within the visualized liver, spleen, pancreas, or kidneys. The adrenal glands are normal. BONES AND SOFT TISSUES: Increased thoracic kyphosis. IMPRESSION: Right upper lobe and lower lobe pneumonia. Bilateral lower lobe atelectasis with small effusions. Signed by: Dr. Rom Glass M.D. on 01/29/2018 12:13 PM
[2018-01-29 14:00] LABS: HEMATOCRIT 29.3 % (34.2-44.1); HEMOGLOBIN 9.6 g/dL (12.0-16.0)
[2018-01-29] MEDS ORDERED: ALBUTEROL/IPRATROPIUM 3 ML NEB NEB PRN (15:00)
[2018-01-29] MEDS ORDERED: METHYLPREDNISOLONE SOD SUCC 125 MG/2ML VIAL IV ONE (15:00)
[2018-01-29] MEDS ORDERED: FUROSEMIDE INJ 10 MG/ML 4 ML VIAL IV ONE (15:00)
[2018-01-29] MEDS ORDERED: SODIUM CHLORIDE 0.9% 50ML 50 ML ONE (18:41)
[2018-01-29] MEDS ORDERED: IOPAMIDOL 370 MG/ML 200 ML INFUS..BTL INJ ONE (18:41)
[2018-01-29 19:58] LABS: HEMATOCRIT 32.1 % (34.2-44.1); HEMOGLOBIN 10.4 g/dL (12.0-16.0)
[2018-01-29] MEDS: PRAVASTATIN 20 MG TAB PO SCH (20:32)
[2018-01-30] VITALS (8 sets, daily range): BP systolic 133–156; BP diastolic 73–89
[2018-01-30] MEDS: METRONIDAZOLE 500MG/NS 100ML 100 ML IV SCH ×3 (03:30→20:02)
[2018-01-30] MEDS: MEROPENEM 500 MG VIAL IV SCH ×4 (03:54→22:05)
[2018-01-30] MEDS: SODIUM CHLORIDE 0.9% 1000ML 1,000 ML IV SCH ×2 (04:25→17:08)
[2018-01-30 04:41] LABS: BASOPHILS % 0.4 % (0.0-1.0); EOSINOPHILS % 0.2 % (0.0-6.0); HEMATOCRIT 32.2 % (34.2-44.1); HEMOGLOBIN 10.7 g/dL (12.0-16.0); LYMPHOCYTES # (AUTO) 0.9 (1.0-3.2); LYMPHOCYTES % 17.4 % (18.0-39.1); MEAN CORPUSCULAR HEMOGLOBIN 30.2 pg (28-32); MEAN CORPUSCULAR HGB CONC 33.2 g/dL (31-35); MONOCYTES # (AUTO) 0.2 (0.2-0.8); MONOCYTES % 4.4 % (4.4-11.3); NEUTROPHILS # (AUTO) 3.8 (2.1-6.9); NEUTROPHILS % 75.8 % (38.7-80.0); PLATELET COUNT 163 x10e3/uL (140-360); RED BLOOD COUNT 3.54 x10e6/uL (3.6-5.1); RED CELL DISTRIBUTION WIDTH 14.1 % (11.7-14.4)
[2018-01-30 04:54] LABS: INR 1.09; PROTHROMBIN TIME 15.1 seconds (11.9-14.5)
[2018-01-30 05:03] LABS: ANION GAP 15.7 mmol/L (8-16); CALCIUM 9.7 mg/dL (8.4-10.2); CREATININE, SERUM 0.96 mg/dL (0.57-1.11); POTASSIUM 3.7 mmol/L (3.5-5.1)
[2018-01-30] MEDS: ACETAMINOPHEN 325 MG TAB PO PRN (05:35)
[2018-01-30] MEDS: LEVOTHYROXINE SODIUM 75 MCG TAB PO SCH (05:36)
[2018-01-30] MEDS: MECLIZINE HCL 12.5 MG TAB PO SCH (08:36)
[2018-01-30] MEDS: PANTOPRAZOLE 40 MG 10ML VIAL IV SCH (08:36)
[2018-01-30] MEDS: AMITRIPTYLINE HCL 25 MG TAB PO SCH (08:37)
[2018-01-30] MEDS: LOSARTAN POTASSIUM 100 MG TAB PO SCH ×2 (08:37→17:07)
[2018-01-30] MEDS: OXYBUTYNIN CHLORIDE 5 MG TAB PO SCH ×2 (08:37→17:08)
[2018-01-30] MEDS: SERTRALINE HCL 100 MG TAB PO SCH ×2 (08:37→17:08)
[2018-01-30] MEDS: AMLODIPINE BESYLATE 5 MG TAB PO SCH ×2 (08:37→17:08)
--- NOTE | 2018-01-30 12:48 | Progress Note ---
DATE: January 30, 2018 GI PROGRESS REPORT SUBJECTIVE: Patient has not had any bowel movement for the last 2 days. She is reporting no abdominal pain. She is also not spiking fever anymore. Appetite is still poor. REVIEW OF SYSTEMS GENERAL: No fever or chills. RESPIRATORY: No cough or expectoration. CVS: No chest pain or palpitations. MEDICATIONS: Reviewed MAR. She is on intravenous meropenem as well as metronidazole along with other medications. PHYSICAL EXAMINATION VITAL SIGNS: Temperature 98.9, pulse 84, respirations 16, blood pressure 146/88 to 156/79, oxygen saturation 96% on 3 liter of nasal cannula. GENERAL: Not in any acute distress. Oral mucosa is moist. Anicteric sclerae. ABDOMEN: Soft. Protuberant belly with mild gaseous distention. No abdominal tenderness. No rebound, rigidity, or guarding. Positive bowel sounds. LABS: Hemoglobin 10.7 from 10.4, hematocrit 32.2 from 32.1, WBC 5.0, and platelet count 163. Sodium 140, potassium 3.7, chloride 107, bicarb 21, BUN 18, and creatinine 0.96. PT 15.1, INR 1.09. IMPRESSION 1. Acute ischemic colitis has likely resolved. 2. Fever has also resolved. Patient is on empiric broad-spectrum intravenous antibiotic. 3. Right upper lobe opacity on the chest x-ray concerning for pleural based mass versus hematoma. Needs further evaluation with contrast CT. PLAN: Advance diet to solid food. Warfarin can be resumed from GI standpoint. Evaluation of abnormal chest x-ray findings as per primary team. Job#: [id number] VAS
--- NOTE | 2018-01-30 16:27 | Progress Note ---
DATE: January 30, 2018 SUBJECTIVE: The patient states she is doing much better today with no complaints. Initially, she said that she did not want to go to a longterm facility, and after thinking about it now she wants to go to a longterm facility. The patient denies any cough, congestion or any fever. OBJECTIVE VITAL SIGNS: Stable when I evaluated her. Temperature 97.9, pulse 82, respiratory rate 16, blood pressure 134/89, pulse oximetry 97% on room air. GENERAL: Not in acute distress. Alert and oriented x3. Calm and cooperative on examination. HEENT: Head normocephalic, atraumatic. Eyes: Pupils are equal and reactive to light bilaterally. Extraocular movements intact bilaterally. Throat with no evidence of erythema or exudates in the posterior pharynx. He has poor dentition. NECK: Supple with good range of motion. PULMONARY: Clear to auscultation bilaterally with no wheezing and no rales, no rhonchi or crackles appreciated. CARDIOVASCULAR: Positive S1 and S2, no murmurs, rubs or gallops appreciated. ABDOMEN: Soft, nondistended, nontender on palpation. Bowel sounds were present. MUSCULOSKELETAL: Strength 5/5 throughout, no evidence of musculoskeletal deficit on exam. No weakness appreciated. NEUROLOGIC: Cranial nerves II-XII grossly intact. No evidence of neurological deficit on examination. SKIN: Intact. Warm to touch. Good capillary refill. EXTREMITIES: No edema. Good range of motion throughout. PSYCHIATRIC: Normal affect and mood. LABORATORY DATA: White count is 5, hemoglobin 10.7, hematocrit 32, platelets 163,000. Her coagulation: INR 1, PT 15.1. Chemistry: Sodium 140, potassium 3.7, chloride 107, bicarb 21, anion gap of 15, BUN 18, creatinine 0.96. Glucose 295. Calcium 9.7. Albumin is 2.7. LFTs were normal. Urinalysis negative. PASCUAL pending. Blood and urine cultures were negative. IMAGING: CT chest with IV contrast consistent with right upper lobe and lower lobe pneumonia. Bilateral lobe atelectasis and small effusion. ASSESSMENT AND PLAN 1. Abdominal pain secondary to ischemic colitis -- diet has been advanced by GI and general surgery. She is now on regular diet. After discussing with the patient, she now does not want to start her warfarin. She is not sure why she is on warfarin. I also discussed with our returner and he is not sure why she is on warfarin. Per our returner, he recommends holding warfarin. After discussing with the patient, at first she wanted to start it, and she now reports that she wants to hold it. She wants to report back to her primary care physician. 2. Acute kidney injury secondary to dehydration -- resolved. 3. Syncope secondary to dehydration and rectal bleeding -- continued to refuse PT and OT. She is scheduled to go to a longterm facility, now wants [facility]. 4. Chronic pain syndrome -- pain is well controlled. 5. Hypertension, stable. 6. Community-acquired pneumonia with underlying fever -- fever is now resolved. Her CT chest with IV contrast consistent with right upper and lower lobe pneumonia. At this time, continue with IV antibiotics. She is afebrile now. White count is better. Her cultures are negative. 7. Questionable history of coagulopathy -- per hematology he does not know exactly why she is on warfarin. The patient wants to hold off of warfarin for now and will follow up with her primary care physician. Again, I also agreed with her that I do not know why she is on warfarin. She does not have any atrial fibrillation. I am not sure if she has a history of paroxysmal atrial fibrillation, nor do I know if she has any history of coagulopathy. At this time, the patient is opting to hold off of warfarin for now. I will follow whatever the patient's wishes are. 8. Prophylaxis: Lovenox. 9. Fluid, electrolytes, nutrition: Low-dose IV fluids. Regular diet. DISPOSITION: Surgery, GI, hematology are all consulted and following. DISCHARGE PLANNING: She is afebrile with white count normal. We are going to try and wean her off of oxygen. Continue with IV antibiotics. Plan is to discharge to a longterm facility, which she picked [facility]. Job#: [id number]
--- NOTE | 2018-01-30 17:34 | Discharge Summary ---
NO DICTATION, length 0 minutes 5 seconds. GERRI ALEJANDRE MD Job#: [id number] EV
[2018-01-30] MEDS: ENOXAPARIN SOD INJ 40 MG/0.4 ML SYR SC SCH (18:17)
[2018-01-30] MEDS: PRAVASTATIN 20 MG TAB PO SCH (20:02)
[2018-01-30] MEDS: HYDROCODONE/APAP 5MG-325MG TAB PO PRN (20:03)
[2018-01-31 00:10] VITALS: BP 133/64
[2018-01-31 04:00] VITALS: BP 121/62
[2018-01-31] MEDS: LEVOTHYROXINE SODIUM 75 MCG TAB PO SCH (05:13)
[2018-01-31] MEDS: METRONIDAZOLE 500MG/NS 100ML 100 ML IV SCH ×2 (05:13→12:04)
[2018-01-31] MEDS: SODIUM CHLORIDE 0.9% 1000ML 1,000 ML IV SCH (05:13)
[2018-01-31] MEDS: MEROPENEM 500 MG VIAL IV SCH ×2 (05:13→10:25)
[2018-01-31 06:46] LABS: BASOPHILS % 0.5 % (0.0-1.0); EOSINOPHILS # (AUTO) 0.2 (0.0-0.4); EOSINOPHILS % 2.1 % (0.0-6.0); HEMATOCRIT 31.3 % (34.2-44.1); HEMOGLOBIN 10.2 g/dL (12.0-16.0); LYMPHOCYTES # (AUTO) 1.8 (1.0-3.2); LYMPHOCYTES % 21.3 % (18.0-39.1); MEAN CORPUSCULAR HEMOGLOBIN 29.7 pg (28-32); MEAN CORPUSCULAR HGB CONC 32.6 g/dL (31-35); MEAN CORPUSCULAR VOLUME 91.3 fL (81-99); MONOCYTES # (AUTO) 0.7 (0.2-0.8); MONOCYTES % 8.4 % (4.4-11.3); NEUTROPHILS # (AUTO) 5.5 (2.1-6.9); NEUTROPHILS % 65.4 % (38.7-80.0); PLATELET COUNT 201 x10e3/uL (140-360); RED BLOOD COUNT 3.43 x10e6/uL (3.6-5.1)
[2018-01-31 07:12] LABS: ANION GAP 12.5 mmol/L (8-16); BLOOD UREA NITROGEN 22 mg/dL (7-26); BUN/CREATININE RATIO 28 (6-25); CALCIUM 9.2 mg/dL (8.4-10.2); CARBON DIOXIDE 23 mmol/L (22-29); CHLORIDE 110 mmol/L (98-107); CREATININE, SERUM 0.78 mg/dL (0.57-1.11); EST GLOMERULAR FILTRATION RATE > 60 ML/MIN (60-); GLUCOSE 161 mg/dL (74-118); POTASSIUM 3.5 mmol/L (3.5-5.1); SODIUM 142 mmol/L (136-145)
[2018-01-31 07:15] VITALS: BP 146/72
[2018-01-31 09:00] VITALS: BP 146/72
[2018-01-31] MEDS: SERTRALINE HCL 100 MG TAB PO SCH ×2 (09:45→17:30)
[2018-01-31] MEDS: MECLIZINE HCL 12.5 MG TAB PO SCH (09:45)
[2018-01-31] MEDS: PANTOPRAZOLE 40 MG 10ML VIAL IV SCH (09:45)
[2018-01-31] MEDS: OXYBUTYNIN CHLORIDE 5 MG TAB PO SCH ×2 (09:45→17:30)
[2018-01-31] MEDS: AMLODIPINE BESYLATE 5 MG TAB PO SCH ×2 (09:45→17:30)
[2018-01-31] MEDS: AMITRIPTYLINE HCL 25 MG TAB PO SCH (09:45)
[2018-01-31] MEDS: LOSARTAN POTASSIUM 100 MG TAB PO SCH ×2 (09:45→17:30)
[2018-01-31] MEDS: ACETAMINOPHEN 325 MG TAB PO PRN (09:50)
[2018-01-31 12:00] VITALS: BP 133/66
--- NOTE | 2018-01-31 16:07 | Discharge Summary ---
FINAL DISCHARGE DIAGNOSES 1. Abdominal pain secondary to ischemic colitis with rectal bleeding, resolved. 2. Acute kidney injury secondary to dehydration, resolved. 3. Syncope secondary to dehydration and rectal bleeding, resolved. 4. Chronic pain syndrome at baseline. 5. Hypertension. 6. Community-acquired pneumonia with underlying fever, resolving. 7. Questionable history of coagulopathy, per our informaticist here at [facility]. It was advisable for the patient to be off warfarin. The patient was to talk with her primary care physician upon discharge to determine her plan of care in terms of warfarin. I left this up to the patient's decision. CONSULTANTS: General surgery, GI, hematology. VITAL SIGNS: Temperature is 98.9, pulse 80, respiratory rate 18, blood pressure 146/72, pulse ox 94% on nasal cannula at 3 L. LAB FINDINGS: Show a white count is 8.4, hemoglobin 10, hematocrit 31, and platelets of 201,000. Coagulation: PT is a 15.1, INR 1.09. Chemistry: Sodium 142, potassium 3.5, chloride 110, bicarb 23, anion gap of 12, BUN 22, creatinine 0.78, glucose is 161. Calcium is 9.2. Albumin 2.7. Troponins were negative times 3. Urinalysis was found to be negative. PASCUAL was negative. MICROBIOLOGY: Blood cultures negative. Urine cultures were negative. IMAGING STUDIES: CT of cervical spine showed no acute cervical abnormality. CT of brain was negative for any acute findings. CT of abdomen and pelvis showed evidence of diffuse thickening and inflammatory change from the splenic flexure to the descending colon. This raises the concern of ischemic colitis given bloody diarrhea and distribution of the differential, although the differential includes infectious colitis. Shoulder x-ray was found to be right shoulder shows severe glenohumeral degenerative arthrosis with bony appearance and hypertrophic osteophyte formation. Chest x-ray shows a right upper lobe pulmonary opacity concerning for underlying mass or hematoma. CT of chest with IV contrast confirmed evidence of right upper lobe and lower lobe pneumonia. Bilateral lower lobe atelectasis with small pleural effusion. Hip x-ray was found to be negative. HOSPITAL COURSE: This is an 82-year-old female with multiple comorbidities, who comes into the ED after having a syncopal episode and evidence of rectal bleeding at home. The patient was admitted for further evaluation. In relation to her abdominal pain and rectal bleeding, GI and general surgery was consulted due to the fact that the CT of the abdomen was consistent with ischemic colitis. The patient was on Coumadin for unknown reasons. While here the patient's hemoglobin maintained stable, and did not require any blood products. There was no further workup by GI or general surgery while here in the hospital. They recommend outpatient colonoscopy in 3-4 weeks. General surgery and GI cleared the patient for discharge. Patient had no more evidence of rectal bleeding prior to discharge home. She was tolerating diet well. The patient was found to have acute kidney injury secondary to dehydration, which resolved. In relation to her syncope, it was presumed to be from underlying dehydration and rectal bleeding, which she improved throughout the hospital course while here. She did work with PT and OT, recommended [facility] facility in which she will be discharged to [facility]. In relation to her chronic pain syndrome, her pain was well controlled on pain medications. Patient was also having hypoxia due to underlying community-acquired pneumonia with underlying fever found on CT chest with IV contrast. Patient maintained on IV antibiotics here and blood cultures were negative. Urine cultures were negative. ID was consulted and no further workup was needed. Patient was discharged on oral Levaquin for 10 more days. Patient was also on warfarin for unknown etiology. I spoke with the PCP, and he reports that he thinks that the patient had some sort of coagulopathy. At this time, I consulted with the informaticist here, Dr. Newton, who says that the patient has no clear indication of why she is on warfarin. At this time, he recommends holding off of any warfarin therapy or any anticoagulation at this time. The patient was okay with holding her warfarin here in the hospital, but would like to talk to her primary care physician upon discharge. I reiterated with her to please discuss this with her primary care doctor, and determine why she was truly on anticoagulation. At this time, it was felt from our specialists from hematology that there is no clear indication and it was okay to discontinue. On discharge, the patient was doing well. Tolerating diet well with no complaints. On the day of discharge, vital signs stable. Labs were reviewed and stable. Patient was seen and evaluated, and examined thoroughly on the day of discharge. No other complaints. Patient verbalized understanding and agrees to plan of care to follow up accordingly as an outpatient with primary care physician in 1 week, outpatient hematology for further management and care, and GI in 4 weeks for colonoscopy. MEDICATIONS: See med reconciliation form includin. Levaquin 500 mg 1 tab p.o. daily for 10 more days. 2. Tylenol No. 3 one tab p.o. q.6 h. p.r.n. for pain, quantity 30 tabs were given. DISPOSITION: half-way facility. CONDITION: Stable. DIET: Heart-healthy. In the event of any worsening symptoms, the patient was advised to come back to the ED for further evaluation. Discharge summary took greater than 35 minutes. ILEANA ARAGON MD Job#: [id number] GALLO
[2018-01-31 17:04] VITALS: BP 156/86
[2018-01-31] MEDS: ENOXAPARIN SOD INJ 40 MG/0.4 ML SYR SC SCH (17:30)
--- OUTSIDE RECORDS SUMMARY | 2018-02-11 09:02 | XMS REPORT ---
Author Author [facility] Address Unknown Phone Unavailable Care Team Providers Care Flight Steward Name Role Phone Neil ARAGON Unavailable Unavailable Problems This patient has no known problems. Allergies, Adverse Reactions, Alerts This patient has no known allergies or adverse reactions. Medications This patient has no known medications. Results Test Description Test Time Test Comments Text Results Atomic Results Result Comments CT CHEST W 2018-01-29 12:05:00 [facility] [address] [address] Patient Name: GARRET FOX MR #: [id number] : 1935 Age/Sex: 82/F Req #: [id number] [facility] Physician: ILEANA ARAGON MD Ordered by: ILEANA ARAGON MD Report #: [id number] Location: [facility] Room/Bed: [place] [address] Procedure: [id number] CT/CT CHEST W Exam Date: 01/29/18 Exam Time: 1140 REPORT STATUS: Signed EXAMINATION: CT scan of the chest with contrast. TECHNIQUE: Helical CT images of the chest were performed from the lung apices to the level of the adrenal glands after the intravenous administration of 100 cc of Isovue 370. Coronal and sagittal reformatted images were obtained.Dose modulation, iterative reconstruction, and/or weight based adjustment of the mA/kV was utilized to reduce the radiation dose to as low as reasonably achievable. COMPARISON: None. CLINICAL HISTORY:Cough, evaluate for lung mass. DISCUSSION: LINES/TUBES: None. LUNGS AND AIRWAYS: Right upper lobe and lower lobe peripheral consolidation. Right lower lobe and left lower lobe dependent atelectasis. Calcified granuloma left lower lobe. PLEURA: Right greater than left small effusions. HEART AND MEDIASTINUM: The thyroid gland is normal. Heart size is normal. Main pulmonary artery measures 2.8 cm. No visualized filling defect within the pulmonary arteries LYMPH NODES: There is no mediastinal, hilar or axillary lymphadenopathy. ABDOMEN: Limited contrast-enhanced views of the upper abdomen show no abnormality within the visualized liver, spleen, pancreas, or kidneys. The adrenal glands are normal. BONES AND SOFT TISSUES: Increased thoracic kyphosis. IMPRESSION: Right upper lobe and lower lobe pneumonia. Bilateral lower lobe atelectasis with small effusions. Signed by: Dr. Marcela Evans M.D. on 01/29/2018 12:13 PM Dictated By: MARCELA EVANS MD 1213 Transcribed By: CASANDRA on 01/29/18 1213 COPY TO: ILEANA ARAGON MD CHEST SINGLE (PORTABLE) 2018-01-28 11:36:00 [place] [address] Patient Name: GARRET FOX MR #: [id number] : 1935 Age/Sex: 82/F Req #: [id number] Adm Physician: ILEANA ARAGON MD Ordered by: ILEANA ARAGON MD Report #: [id number] Location: [facility] Room/Bed: [place] [address] Procedure: [id number] DX/CHEST SINGLE (PORTABLE) Exam Date: 01/28/18 Exam Time: 0940 REPORT STATUS: Signed PROCEDURE: A single AP view of the chest. COMPARISON: [facility], DX, SHOULDER COMPLETE BILATERAL, 01/27/2018, 12:23. [facility], DX, CHEST 2 VIEWS, 12/07/2016, 12:21. INDICATIONS: SHORT OF BREATH FINDINGS: Lines/tubes: None. Lungs: Opacity which may be pleural-based involving the right lateral upper lobe region. Increase in the pulmonary vascularity. There is a right basilar opacity likely atelectasis. Pleura: There is no pleural effusion or pneumothorax. Heart and mediastinum: The heart and the mediastinum are unremarkable. Calcification within the aorta. Bones: Degenerative changes of both shoulders. IMPRESSION: 1. Right upper pulmonary opacity could represent pleural-based mass or hematoma. 2. CT scan of the chest with IV contrast is recommended. Tuan Brian D.O. Dictated by: Tuan Brian D.O. on 01/28/2018 at 11:36 Electronically approved by: Tuan Brian D.O. on 01/28/2018 at 11:36 Dictated By: TUAN BRIAN DO 1136 Transcribed By: VLAD on 01/28/18 1136 COPY TO: ILEANA ARAGON MD SHOULDER COMPLETE BILATERAL 2018-01-27 13:20:00 [place] [address] Patient Name: GARRET FOX MR #: [id number] : 1935 Age/Sex: 82/F Req #: [id number] Adm Physician: ILEANA ARAGON MD Ordered by: ILEANA ARAGON MD Report #: [id number] Location: [facility] Room/Bed: [place] [address] Procedure: [id number] DX/SHOULDER COMPLETE BILATERAL Exam Date: 01/27/18 Exam Time: 1240 REPORT STATUS: Signed Exam: Right and left shoulder 2 views each History: Shoulder pain, fall Comparison: None. Findings: No fracture or malalignment. Severe glenohumeral degenerative arthrosis with [id number] appearance and hypertrophic osteophyte formation. No abnormal soft tissue calcification or soft tissue defect. Impression: No acute osseous abnormality Severe glenohumeral degenerative arthrosis with [id number] appearance and hypertrophic osteophyte formation Signed by: Dr. Marcela Evans M.D. on 01/27/2018 1:21 PM Dictated By: MARCELA EVANS MD 1321 Transcribed By: CASANDRA on 01/27/18 1321 COPY TO: ILEANA ARAGON MD HIPS BILAT TWO VWS(+/- PELVIS) 2018-01-27 13:18:00 [place] [address] Patient Name: GARRET FOX MR #: [id number] : 1935 Age/Sex: 82/F Req #: [id number] [facility] Physician: ILEANA ARAGON MD Ordered by: ILEANA ARAGON MD Report #: [id number] Location: [facility] Room/Bed: [place] [address] Procedure: [id number] DX/HIPS BILAT TWO VWS(+/- PELVIS) Exam Date: Exam Time: REPORT STATUS: Signed Exam: Right and left hip 2 views each with AP pelvis History: Pain Comparison: None. Findings: No displaced fracture. Right total hip arthroplasty. Hardware intact. Minimal degenerative arthrosis of the left hip. Bone demineralization. Impression: No acute osseous abnormality Intact right hip total arthroplasty Signed by: Dr. Marcela Evans M.D. on 01/27/2018 1:20 PM Dictated By: MARCELA EVANS MD 1320 Transcribed By: CASANDRA on 01/27/18 1320 COPY TO: ILEANA ARAGON MD CT ABDOMEN/PELVIS WO 2018-01-26 20:38:00 [place] [address] Patient Name: GARRET FOX MR #: [id number] : 1935 Age/Sex: 82/F Req #: [id number] Adm Physician: ILEANA ARAGON MD Ordered by: LUIS DICKERSON MD Report #: [id number] Location: [facility] Room/Bed: [place] [address] Procedure: [id number] CT/CT ABDOMEN/PELVIS WO Exam Date: 01/26/18 Exam Time: 2001 REPORT STATUS: Signed EXAM: CT ABDOMEN/PELVIS WO DATE: 01/26/2018 7:37 PM INDICATION: S BLOODY DIARRHEA S [id number] S 2001 S Y COMPARISON: None TECHNIQUE: The abdomen and pelvis were scanned using a multidetector helical scanner. Coronal and sagittal reformations were obtained. CT low dose techniques were utilized, as applicable. IV Contrast: 0 ml Isovue 300/370 FINDINGS: Lack of IV contrast decreases sensitivity in evaluating abdominal and pelvic organs. LOWER THORAX: Minimal bibasilar scarring/atelectasis. LIVER/BILIARY: Unremarkable noncontrast appearance. GALLBLADDER: Unremarkable SPLEEN: Unremarkable PANCREAS: Unremarkable noncontrast appearance ADRENALS: No nodules KIDNEYS: No stones. No hydronephrosis. GI TRACT: Diffuse wall thickening and inflammatory posada es about the splenic flexure and descending colon. Scattered diverticula. Normal appendix. VESSELS: Moderate atherosclerotic calcifications. PERITONEUM/RETROPERITONEUM: No free air or fluid LYMPH NODES: No lymphadenopathy REPRODUCTIVE ORGANS/BLADDER: Chase noted within the bladder. Otherwise unremarkable noncontrast appearance. SOFT TISSUES: Tiny fat-containing umbilical hernia. BONES: Partially imaged right hip arthroplasty. Multilevel degenerative changes with grade 1 anterolisthesis of L4 over L5. IMPRESSION: Diffuse thickening and inflammatory change from the splenic flexure through the descending colon. This raises suspicion of ischemic colitis given bloody diarrhea and distribution although the differential includes infectious colitis. Signed by: Dr Radha Glover MD on 01/26/2018 8:49 PM Dictated By: RADHA GLOVER MD 48 Transcribed By: CASANDRA on 01/26/182048 COPY TO: LUIS DICKERSON MD CT CERVICAL SPINE WO 2018-01-26 19:15:00 [place] [address] Patient Name: GARRET FOX MR #: [id number] : 1935 Age/Sex: 82/F Req #: [id number] Adm Physician: Ordered by: LUIS DICKERSON MD Report #: [id number] Location: ER Room/Bed: Procedure: [id number] CT/CT CERVICAL SPINE WO Exam Date: 01/26/18 Exam Time: 1828 REPORT STATUS: Signed History: Fall, hit head Comparison studies: None Technique: Axial images were obtained through the cervical region. Coronal and sagittal images reconstructed from the axial data. Intravenous contrast: None Findings: Atlantoaxial articulation: Degenerative changes without acute abnormality Alignment: Normal lordosis No scoliosis. Cervicomedullary junction: No abnormalities. Patent foramen magnum. Soft tissues: No gross abnormalities. Vertebrae: No fractures, neoplasm or infection. Degenerative changes: C2-C3: Patent spinal canal and foramina . C3- 4: Uncinate facet results in mild bilateral foraminal narrowing with patent canal . C4-5: Uncinate process and facet hypertrophy results in moderate right and mild left foraminal narrowing and patent canal . C5-6: Disc degeneration with decreased intervertebral space. Uncinate process and facet results in moderate bilateral narrowing and patent canal . C6-7: Is degeneration with obliterated intervertebral space. Posterior disc osteophyte complex, bilateral uncinate hypertrophy and facet hypertrophy results in moderate bilateral foraminal narrowing . C7-T1: Patent spinal canal and foramina . IMPRESSION: 1. No acute cervical abnormality. 2. Cannot rule out ligamentous or spinal cord injury. Signed by: DR Fredy Hudson M.D. on 01/26/2018 7:20 PM Dictated By: FREDY KHAN MD 19 Transcribed By: CASANDRA on 01/26/181919 COPY TO: LUIS DICKERSON MD CT BRAIN WO 2018-01-26 18:49:00 [place] [address] Patient Name: GARRET FOX MR #: [id number] : 1935 Age/Sex: 82/F Req #: [id number] Adm Physician: Ordered by: LUIS DICKERSON MD Report #: [id number] Location: Room/Bed: Procedure: [id number] CT/CT BRAIN WO Exam Date: 01/26/18 Exam Time: 1829 REPORT STATUS: Signed History:Fall, syncope Comparison studies:None Technique: Axial images were obtained from the skull base to the vertex. Coronal and sagittal images reconstructed from the axial data. Intravenous contrast: None Dose modulation, iterative reconstruction, and/or weight based adjustment of the mA/kV was utilized to reduce the radiation dose to as low as reasonably achievable. Findings: Scalp/skull: No abnormalities. Extra- axial spaces: No masses. No fluid collections. Brain sulci: Mildly prominent. Ventricles: Mild compensatory dilatation. No hydrocephalus. Parenchyma: Few small hypodensities in the supratentorial white matter are small vessel ischemic changes. Small chronic head and left subinsular region.. No masses, hemorrhage, acute or chronic cortical vascular insults. Sella r/suprasellar region: No abnormalities. Craniocervical junction: Patent foramen magnum. No Chiari one malformation. Incidental findings: Atherosclerotic calcifications in the carotid siphons . Impression: No acute abnormalities. Chronic findings: 1. Mild generalized volume loss. 2. Mild supratentorial white matter small vessel ischemic changes. Signed by: DR Fredy Hudson M.D. on 01/26/2018 6:50 PM Dictated By: FREDY KHAN MD 49 Transcribed By: CASANDRA on 01/26/181849 COPY TO: LUIS DICKERSON MD
== END 2018-01-31 18:59 | DRG 393 ==
LOC: ER 16:13 → ERHOLD 19:51 → IMCU 22:02 → OBSVTOIN 01-27
PROVIDERS: ADMIT Internal Medicine; ATTEND Internal Medicine
DX: K55.9 Vascular disorder of intestine, unspecified (principal); J18.9 Pneumonia, unspecified organism; N17.9 Acute kidney failure, unspecified; D68.9 Coagulation defect, unspecified; D68.32 Hemorrhagic disorder due to extrinsic circulating anticoagulants; E86.0 Dehydration; G89.4 Chronic pain syndrome; I10 Essential (primary) hypertension; R32 Unspecified urinary incontinence; E03.9 Hypothyroidism, unspecified; R16.0 Hepatomegaly, not elsewhere classified; G89.29 Other chronic pain; E66.9 Obesity, unspecified; Z68.30 Body mass index [BMI] 30.0-30.9, adult; T45.515A Adverse effect of anticoagulants, initial encounter
CPT/HCPCS: 36415; 51700; 70450; 71045; 71260; 72125; 73521; 74176; 80048; 80053; 81001; 82948; 84484; 85014; 85018; 85025; 85610; 85651; 85730; 86039; 86140; 86850; 86900; 86920; 87040; 87086; 93005; 96360; 97139; 99284; G0378; J1650; J1940; J2185; J2270; J2405; J2930; J3430; J7030; Q9967

== ENCOUNTER 2018-02-13 15:51 | Emergency (ER) | payer MEDICARE ==
[~2018-02-13] VITALS: Ht 153.7 cm; Wt 71.2 kg
[2018-02-13 18:41] VITALS: BP 142/85
== END 2018-02-13 18:52 | disposition home or self-care (01) ==
LOC: ER 15:51
DX: K59.00 Constipation, unspecified (principal); R11.0 Nausea; I10 Essential (primary) hypertension; E11.9 Type 2 diabetes mellitus without complications; E07.9 Disorder of thyroid, unspecified; Z85.3 Personal history of malignant neoplasm of breast
CPT/HCPCS: 99282